=== PATIENT | female | born 1995 | race African-American/Black ===

== ENCOUNTER 2018-06-17 10:55 | Emergency (ER) | payer OTHER ==
[~2018-06-17] VITALS: Ht 149.9 cm; Wt 56.8 kg
[2018-06-17] MEDS ORDERED: ASPIRIN 81 MG CHEW TABLET PO ONE (11:15)
[2018-06-17 11:46] LABS: BASO % 0.4 % (0.0-1.0); EOS # 0.2 10^3/uL (0.0-0.50); EOS % 3.3 % (0.0-3.0); HEMATOCRIT 40.1 % (36.0-47.0); HEMOGLOBIN 12.9 g/dl (12.0-15.5); LYMPH % 41.6 % (24.0-44.0); MEAN CORPUSCULAR HEMOGLOBIN 27.4 pg (27.0-33.0); MEAN CORPUSCULAR HGB CONC 32.2 g/dl (32.0-36.5); MEAN CORPUSCULAR VOLUME 85.1 fl (80.0-96.0); MONO # 0.4 10^3/uL (0.0-0.8); MONO % 6.1 % (0.0-5.0); NEUTROPHILS # 3.5 10^3/uL (1.8-7.7); NEUTROPHILS % 48.3 % (36.0-66.0); PLATELET COUNT, AUTOMATED 275 10^3/uL (150-450); RED BLOOD COUNT 4.71 10^6/uL (4.00-5.40); WHITE BLOOD COUNT 7.2 10^3/uL (4.0-10.0)
--- NOTE | 2018-06-17 11:52 | REP ---
Chest two views HISTORY: Chest pain Comparison: None The lungs are clear. The heart is normal in size. The pulmonary vasculature is normal in appearance. The bony structure is intact. IMPRESSION: No acute disease. Electronically Signed by Volodymyr Wilson MD 06/17/2018 11:44 A
[2018-06-17 11:59] LABS: INR 0.94; PARTIAL THROMBOPLASTIN TIME 31.5 SECONDS (25.4-37.6); PROTHROMBIN TIME 12.7 SECONDS (12.1-14.4)
[2018-06-17 12:25] LABS: ALBUMIN 3.6 GM/DL (3.2-5.2); ALT/SGPT 14 U/L (12-78); BILIRUBIN,DIRECT < 0.1 MG/DL (0.0-0.2); BILIRUBIN,TOTAL 0.3 MG/DL (0.2-1.0); BLOOD UREA NITROGEN 13 MG/DL (7-18); CARBON DIOXIDE LEVEL 27 MEQ/L (21-32); CHLORIDE LEVEL 108 MEQ/L (98-107); CPK CREATINE PHOSPHOKINASE 249 U/L (26-192); CREATININE FOR GFR 0.84 MG/DL (0.55-1.30); FREE T4 1.13 NG/DL (0.76-1.46); GLOMERULAR FILTRATION RATE > 60.0 (>60); GLUCOSE, FASTING 87 MG/DL (70-100); LIPASE 84 U/L (73-393); MB/CK RELATIVE INDEX 0.52 (< OR =4); POTASSIUM SERUM 3.8 MEQ/L (3.5-5.1); SODIUM LEVEL 140 MEQ/L (136-145); THYROID STIMULATING HORMONE 0.676 uIU/ML (0.358-3.740); TOTAL PROTEIN 7.1 GM/DL (6.4-8.2); TROPONIN I < 0.02 NG/ML (< 0.10)
[2018-06-17] MEDS ORDERED: KETOROLAC 30 MG/ML VIAL (J1885) IV ONE (12:45)
[2018-06-17 14:46] VITALS: BP 103/56
--- NOTE | 2018-06-17 21:35 | ECGEPIP ---
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
== END 2018-06-17 14:53 | disposition home or self-care (01) ==
LOC: M ED 10:55
DX: R07.89 Other chest pain (principal); F41.9 Anxiety disorder, unspecified
CPT/HCPCS: 71046; 80048; 80076; 82550; 82553; 83690; 84439; 84443; 84484; 85025; 85379; 85610; 85730; 93005; 93041; 94760; 96374; 99285; J1885

== ENCOUNTER → 2018-07-24 | Outpatient (CLI) | payer OTHER ==
[~2018-07-24] MED LIST: METHACHOLINE KIT (J7674) INH ONE
--- NOTE | 2018-07-24 15:35 | PFTRPT ---
Height: 61.00 Inches Weight: 123.00 Lbs BSA: 1.54 Diagnosis: R05 DATE OF PROCEDURE: 07/24/2018 ORDERED BY: Dr. White INTERPRETATION: Study of excellent technical quality. Under protocol, methacholine was administered. At a dose of 2.5 mg or 13.875 CDUs, a 28% decline in the FEV1 was noted. PC of 0.71 is significant. Flow rates did return to baseline post bronchodilator administration. IMPRESSION: Positive methacholine challenge study. MTDD
== END ==
LOC: M CARPUL 12:19
PROVIDERS: ATTEND Internal Medicine Pulmonary Disease
DX: R05 Cough (principal)
CPT/HCPCS: 94070; J7674

== ENCOUNTER 2018-09-05 08:21 | Emergency (ER) | payer OTHER ==
[~2018-09-05] VITALS: Ht 152.4 cm; Wt 58.6 kg
[2018-09-05 08:22] VITALS: BP 123/75
== END 2018-09-05 09:27 | disposition home or self-care (01) ==
LOC: M ED 08:21
DX: L03.012 Cellulitis of left finger (principal); F17.200 Nicotine dependence, unspecified, uncomplicated; Z88.4 Allergy status to anesthetic agent

== ENCOUNTER 2018-09-11 07:59 | Emergency (ER) | payer OTHER ==
[~2018-09-11] VITALS: Ht 152.4 cm; Wt 58.0 kg
[2018-09-11] MEDS ORDERED: IBUP-1022 PO (08:08)
[2018-09-11] MEDS ORDERED: ACETAMINOPHEN 500 MG TAB PO ONE (09:00)
[2018-09-11 09:31] LABS: BASO % 0.7 % (0.0-1.0); EOS # 0.2 10^3/uL (0.0-0.50); EOS % 5.2 % (0.0-3.0); HEMATOCRIT 39.3 % (36.0-47.0); HEMOGLOBIN 12.6 g/dl (12.0-15.5); LYMPH # 2.3 10^3/uL (1.5-6.5); LYMPH % 54.1 % (24.0-44.0); MEAN CORPUSCULAR HEMOGLOBIN 28.6 pg (27.0-33.0); MEAN CORPUSCULAR HGB CONC 32.1 g/dl (32.0-36.5); MEAN CORPUSCULAR VOLUME 89.1 fl (80.0-96.0); MONO # 0.3 10^3/uL (0.0-0.8); MONO % 6.8 % (0.0-5.0); NEUTROPHILS # 1.4 10^3/uL (1.8-7.7); PLATELET COUNT, AUTOMATED 254 10^3/uL (150-450); RED BLOOD COUNT 4.41 10^6/uL (4.00-5.40); WHITE BLOOD COUNT 4.3 10^3/uL (4.0-10.0)
[2018-09-11 09:49] LABS: ERYTHROCYTE SEDIMENTATION RATE 13 mm/hr (0-20)
[2018-09-11 09:59] LABS: BLOOD UREA NITROGEN 7 MG/DL (7-18); CALCIUM LEVEL 8.5 MG/DL (8.5-10.1); CARBON DIOXIDE LEVEL 26 MEQ/L (21-32); CHLORIDE LEVEL 108 MEQ/L (98-107); CREATININE FOR GFR 0.73 MG/DL (0.55-1.30); GLOMERULAR FILTRATION RATE > 60.0 (>60); GLUCOSE, FASTING 74 MG/DL (70-100); SODIUM LEVEL 140 MEQ/L (136-145)
[2018-09-11] MEDS ORDERED: CYCL10TA PO (10:08)
[2018-09-11 10:10] VITALS: BP 113/62
== END 2018-09-11 10:21 | disposition home or self-care (01) ==
LOC: M ED 07:59
DX: R68.84 Jaw pain (principal); G89.18 Other acute postprocedural pain; Z72.0 Tobacco use; Z88.8 Allergy status to other drugs, medicaments and biological substances

== ENCOUNTER 2018-09-17 19:40 | Emergency (ER) | payer OTHER ==
[~2018-09-17] VITALS: Ht 152.4 cm; Wt 58.6 kg
[~2018-09-17 19:40] MED LIST changes: +CYCL10TA PO; +IBUP-1022 PO; -METHACHOLINE KIT (J7674) INH ONE
[2018-09-17] MEDS ORDERED: cefTRIAXone SOD 250 MG VIAL (J0696) IM ONE (20:15)
[2018-09-17] MEDS ORDERED: AZITHROMYCIN 250 MG TAB PO ONE (20:15)
[2018-09-17 20:51] VITALS: BP 108/64
== END 2018-09-17 20:53 | disposition home or self-care (01) ==
LOC: M ED 19:40
DX: A56.2 Chlamydial infection of genitourinary tract, unspecified (principal); J45.909 Unspecified asthma, uncomplicated; Z79.899 Other long term (current) drug therapy
CPT/HCPCS: 96372; 99283; J0696

== ENCOUNTER 2018-10-13 12:36 | Emergency (ER) | payer OTHER ==
[~2018-10-13] VITALS: Ht 152.4 cm; Wt 59.1 kg
[2018-10-13] MEDS ORDERED: PREN29TA4 PO (14:24)
[2018-10-13] MEDS ORDERED: FLAG500T PO (16:46)
[2018-10-13 16:59] VITALS: BP 115/59
[2018-10-13 17:02] LABS: CHLAMYDIA DNA AMPLIFICATION NEGATIVE (NEGATIVE); GC DNA AMPLIFICATION NEGATIVE (NEGATIVE)
--- NOTE | 2018-10-13 19:45 | REP ---
REASON: Left sided pain/supervision of normal . Multiple ultrasonographic images of the gravid uterus show a single living intrauterine gestation. The mean crown-rump length measurement of which is consistent with a 6 week 3 day gestational age. Doppler interrogation of the pole shows a heart rate of 115 beats per minute. There is no evidence of a chorionic or subchorionic abnormality. Evaluation of the maternal adnexal spaces showed no abnormalities. There is a 2.8 mm size right ovarian cyst, likely a corpus luteum cyst which is normal. IMPRESSION:Early OB ultrasound as described above. Electronically Signed by Kal Peters DO 10/14/2018 11:57 A
== END 2018-10-13 16:58 | disposition home or self-care (01) ==
LOC: M ED 12:36
DX: O23.591 Infection of other part of genital tract in pregnancy, first trimester (principal); O99.511 Diseases of the respiratory system complicating pregnancy, first trimester; Z79.899 Other long term (current) drug therapy; Z88.8 Allergy status to other drugs, medicaments and biological substances

== ENCOUNTER 2018-11-09 10:27 | Emergency (ER) | payer OTHER ==
[~2018-11-09] VITALS: Ht 152.4 cm; Wt 61.4 kg
[~2018-11-09 10:27] MED LIST changes: +FLAG500T PO; +PREN29TA4 PO
[2018-11-09 10:28] VITALS: BP 124/69
[2018-11-09 11:20] LABS: AMORPHOUS SEDIMENT SMALL (NEGATIVE); APPEARANCE, URINE HAZY (CLEAR); BACTERIA, URINE AUTO NEGATIVE (NEGATIVE); BASO % 0.4 % (0.0-1.0); BILIRUBIN, URINE AUTO NEGATIVE (NEGATIVE); BLOOD, URINE BLOOD NEGATIVE (NEGATIVE); COLOR, URINE YELLOW (YELLOW); EOS # 0.2 10^3/uL (0.0-0.5); EOS % 3.7 % (0.0-3.0); GLUCOSE, URINE (UA) AUTO NEGATIVE (NEGATIVE); HEMATOCRIT 37.9 % (36.0-47.0); HEMOGLOBIN 12.8 g/dl (12.0-15.5); KETONE, URINE AUTO NEGATIVE (NEGATIVE); LEUKOCYTE ESTERASE, URINE AUTO TRACE (NEGATIVE); LYMPH # 1.6 10^3/uL (1.5-5.0); LYMPH % 31.2 % (24.0-44.0); MEAN CORPUSCULAR HEMOGLOBIN 28.8 pg (27.0-33.0); MEAN CORPUSCULAR HGB CONC 33.8 g/dl (32.0-36.5); MEAN CORPUSCULAR VOLUME 85.4 fl (80.0-96.0); MONO # 0.4 10^3/uL (0.0-0.8); MONO % 7.9 % (0.0-5.0); MUCUS, URINE SMALL (NEGATIVE); NEUTROPHILS # 2.9 10^3/uL (1.5-8.5); NEUTROPHILS % 56.4 % (36.0-66.0); NITRITE, URINE AUTO NEGATIVE (NEGATIVE); PLATELET COUNT, AUTOMATED 211 10^3/uL (150-450); PROTEIN, URINE AUTO NEGATIVE (NEGATIVE); RBC, URINE AUTO 2 /HPF (0-3); RED BLOOD COUNT 4.44 10^6/uL (4.00-5.40); SPECIFIC GRAVITY URINE AUTO 1.025 (1.002-1.035); SQUAMOUS EPITHELIAL CELL UR AU 23 /HPF (0-6); UROBILINOGEN, URINE AUTO 0.2 mg/dL (0.0-2.0); WBC, URINE AUTO 1 /HPF (0-3); WHITE BLOOD COUNT 5.1 10^3/uL (4.0-10.0)
[2018-11-09] MEDS ORDERED: METOCLOPRAMIDE INJ 10MG/2ML VIAL (J2765) IV ONE (11:30)
[2018-11-09] MEDS ORDERED: NS 1,000 ML IV ONE (11:30)
[2018-11-09 11:36] LABS: PROTHROMBIN TIME 12.9 SECONDS (11.8-14.0)
[2018-11-09 11:37] LABS: PARTIAL THROMBOPLASTIN TIME 29.3 SECONDS (25.0-38.4)
[2018-11-09 12:01] LABS: ALBUMIN 3.3 GM/DL (3.2-5.2); ALT/SGPT 16 U/L (12-78); BILIRUBIN,TOTAL 0.3 MG/DL (0.2-1.0); BLOOD UREA NITROGEN 8 MG/DL (7-18); CALCIUM LEVEL 9.2 MG/DL (8.5-10.1); CARBON DIOXIDE LEVEL 26 MEQ/L (21-32); CHLORIDE LEVEL 105 MEQ/L (98-107); CK-MB VALUE MASS < 1.0 NG/ML (<3.6); CPK CREATINE PHOSPHOKINASE 131 U/L (26-192); CREATININE FOR GFR 0.63 MG/DL (0.55-1.30); GLOMERULAR FILTRATION RATE > 60.0 (>60); GLUCOSE, FASTING 75 MG/DL (70-100); HCG, SERUM QUANTITATIVE 64872 MIU/ML; MB/CK RELATIVE INDEX 0.76 (< OR =4); POTASSIUM SERUM 3.9 MEQ/L (3.5-5.1); SODIUM LEVEL 138 MEQ/L (136-145); TOTAL PROTEIN 7.1 GM/DL (6.4-8.2); TROPONIN I < 0.02 NG/ML (< 0.10)
--- NOTE | 2018-11-09 12:55 | REP ---
Clinical: Vaginal bleeding for Dating and viability. Technique: Transabdominal first trimester obstetrical ultrasound with color Doppler evaluation. Findings: Single live early intrauterine is appreciated. Gestational sac with yolk sac and pole identified. [place]-rump length of 3.5 cm corresponds to 10 weeks 2 days gestational age with estimated date of delivery 06/05/2019 . heart rate equals 169 beats per minute. No gross abnormalities are identified. Maternal ovaries are normal in appearance and vascularity without torsion and a right corpus luteum cyst identified. Impression: Single live early intrauterine at 10 weeks 2 days gestational age. Complete anatomical assessment should be performed and 19-20 weeks. Electronically Signed by Enrike Ortega MD 11/09/2018 12:46 P
--- NOTE | 2018-11-09 13:15 | REP ---
Clinical: chest pain . Comparison: 06/17/2018 . Findings: The mediastinum and cardiac silhouette are stable and within normal limits for portable technique. The lung perez are clear without acute consolidation, effusion, or pneumothorax. Skeletal structures are intact. Impression: No acute cardiopulmonary process appreciated. Electronically Signed by Enrike Ortega MD 11/09/2018 01:06 P
[2018-11-09 14:06] LABS: CHLAMYDIA DNA AMPLIFICATION NEGATIVE (NEGATIVE); GC DNA AMPLIFICATION NEGATIVE (NEGATIVE)
--- NOTE | 2018-11-09 20:35 | ECGEPIP ---
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
== END 2018-11-09 15:16 | disposition home or self-care (01) ==
LOC: M ED 10:27
DX: O26.891 Other specified pregnancy related conditions, first trimester (principal); O99.511 Diseases of the respiratory system complicating pregnancy, first trimester; Z3A.10 10 weeks gestation of pregnancy; Z79.899 Other long term (current) drug therapy; Z88.8 Allergy status to other drugs, medicaments and biological substances
CPT/HCPCS: 36415; 71045; 76801; 80053; 81001; 82550; 82553; 84484; 84702; 85025; 85610; 85730; 86900; 86901; 87210; 87661; 93005; 93976; 96361; 96374; 99284; J2765

== ENCOUNTER 2019-02-02 16:09 | Outpatient (CLI) | payer OTHER ==
[~2019-02-02] VITALS: Ht 152.4 cm; Wt 69.7 kg
[2019-02-02 16:34] VITALS: BP 120/65
[2019-02-02] MEDS ORDERED: ALBU83IN NEB (16:34)
[2019-02-02 17:41] VITALS: BP 128/64
[2019-02-02 20:02] LABS: CHLAMYDIA DNA AMPLIFICATION NEGATIVE (NEGATIVE); GC DNA AMPLIFICATION NEGATIVE (NEGATIVE)
--- NOTE | 2019-02-03 02:14 | IPNPDOC ---
Text Note Date of Service The patient was seen on 02/02/19. NOTE Triage note Sim is a 23yo with SIUP at 22+wk presenting for lower abdominal pain/cramping that has been going on for 2 weeks. She also notes a "thick white vaginal discharge" that has been going on for 2 weeks. No vaginal itching or vaginal discomfort. No burning with urination or increased frequency/urge. No n/v/f/c. She has not had ctx, lof, vb. She feels movement. 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 No e/o infection with negative G/C DNA and negative MERLIN/WP. Benign exam with normal vitals and reassuring status. Plan: -urine culture pending -reassurance provided that these are likely normal physiologic changes of -tylenol, warm baths, comfortable positioning all encouraged -patient instructed to keep routine scheduled OB visit mid February -safe for discharge -return precautions discussed MD CORAZON Martinez Fishbone, I+O VSBella, I+O Vital Signs Date Time Temp Pulse Resp B/P (MAP) Pulse Ox O2 Delivery O2 Flow Rate FiO2 02/02/19 17:41 97.6 88 16 128/64 (85) Any Dwyer MD Feb 02, 2019 18:40
== END 2019-02-02 18:08 | disposition home or self-care (01) ==
LOC: M LDO 16:09
PROVIDERS: ATTEND Obstetrics & Gynecology
DX: O26.892 Other specified pregnancy related conditions, second trimester (principal); R10.30 Lower abdominal pain, unspecified; N89.8 Other specified noninflammatory disorders of vagina; Z3A.22 22 weeks gestation of pregnancy
CPT/HCPCS: 59025; 87086; 87491; 87591; G0378; G0463

== ENCOUNTER 2019-02-11 06:00 | Outpatient (CLI) | payer OTHER ==
[~2019-02-11] VITALS: Ht 152.4 cm; Wt 68.8 kg
[~2019-02-11 06:00] MED LIST changes: +ALBU83IN NEB
[2019-02-11 07:02] VITALS: BP 102/57
[2019-02-11] MEDS ORDERED: ALBUTERAL INHALER (07:21)
[2019-02-11] MEDS ORDERED: TUMS750C5 PO (07:23)
[2019-02-11 08:19] VITALS: BP 97/56
[2019-02-11 09:44] VITALS: BP 115/61
--- NOTE | 2019-02-11 11:19 | IPNPDOC ---
Text Note Date of Service The patient was seen on 02/11/19. NOTE Triage note Sim is a 23yo with SIUP at 23+wk presenting for low back pain and some lower abdominal pain that has been going on since Saturday, when she did an intense work out. I saw her in triage previously on 02/02 for low abdominal discomfort and did a PTL workup (SSE cervix was visually closed/thick/high, MERLIN/WP negative, G/C DNA neg, urine culture no growth). She has not had ctx, lof, vb. She feels movement. No n/v/f/c. Vitals wnl, afebrile General: WDWN, sitting in bed comfortably Abdomen: soft, gravid, NTTP and no rebound/guarding Back: NO CVAT, pt endorses some tenderness with palpation in a central portion over her lower back (to the sides of her spine), no skin changes Extremities: no edema of BLE +Doptones [place]: no ctx Assessment: Sim is a 23yo with SIUP at 23+wk presenting for low back pain and some lower abdominal pain that has been going on since Saturday, when she did an intense work out. She had PTL workup done on 02/02 that showed no e/o infection with negative G/C DNA and negative MERLIN/WP and no growth of urine culture. Today she has benign exam with normal vitals and reassuring status. There are no ctx on toco. No concern for PTL. Plan: -reassurance provided, her discomfort is likely related to overstraining her back with Saturday's workup -tylenol, warm baths, comfortable positioning all encouraged -note given for no further PT prior to vacation -patient instructed to keep routine scheduled OB visit mid February -safe for discharge -return precautions discussed Dr. Any Dwyer MD VS,Bella, I+O VS, Bella, I+O Vital Signs Date Time Temp Pulse Resp B/P (MAP) Pulse Ox O2 Delivery O2 Flow Rate FiO2 02/11/19 09:44 97.8 89 16 115/61 (79) Any Dwyer MD Feb 11, 2019 11:14
== END 2019-02-11 10:00 | disposition home or self-care (01) ==
LOC: M LDO 06:00
PROVIDERS: ATTEND Obstetrics & Gynecology
DX: O99.89 Other specified diseases and conditions complicating pregnancy, childbirth and the puerperium (principal); M54.5 Low back pain; R10.30 Lower abdominal pain, unspecified; Z3A.23 23 weeks gestation of pregnancy

== ENCOUNTER 2019-04-22 08:32 | Outpatient (CLI) | payer OTHER ==
[~2019-04-22] VITALS: Ht 152.4 cm; Wt 72.0 kg
[2019-04-22] VITALS (11 sets, daily range): BP systolic 91–134; BP diastolic 43–70
[~2019-04-22 08:32] MED LIST changes: +ALBUTERAL INHALER; +TUMS750C5 PO
[2019-04-22] MEDS ORDERED: LACTATED RINGER'S 1000 ML IV STA (10:45)
[2019-04-22] MEDS ORDERED: LR 1,000 ML IV SCH (10:45)
[2019-04-22 11:47] LABS: APPEARANCE, URINE CLEAR (CLEAR); BACTERIA, URINE AUTO NEGATIVE (NEGATIVE); BILIRUBIN, URINE AUTO NEGATIVE (NEGATIVE); BLOOD, URINE BLOOD NEGATIVE (NEGATIVE); COLOR, URINE YELLOW (YELLOW); GLUCOSE, URINE (UA) AUTO NEGATIVE (NEGATIVE); KETONE, URINE AUTO 1+ mg/dL (NEGATIVE); LEUKOCYTE ESTERASE, URINE AUTO NEGATIVE (NEGATIVE); MUCUS, URINE SMALL (NEGATIVE); NITRITE, URINE AUTO NEGATIVE (NEGATIVE); PROTEIN, URINE AUTO NEGATIVE (NEGATIVE); RBC, URINE AUTO 0 /HPF (0-3); SPECIFIC GRAVITY URINE AUTO 1.021 (1.002-1.035); SQUAMOUS EPITHELIAL CELL UR AU 2 /HPF (0-6); UROBILINOGEN, URINE AUTO 0.2 mg/dL (0.0-2.0); WBC, URINE AUTO 1 /HPF (0-3)
[2019-04-22] MEDS ORDERED: TERBUTALINE SULFATE 1 MG/ML VIAL (J3105) SC ONE (14:45)
--- NOTE | 2019-04-22 17:12 | REP ---
Obstetric sonography: History: growth study. Findings: Scanning through the gravid uterus demonstrates a viable single intrauterine gestation in a cephalic lie. motion is observed and heart rate is recorded at 152 beats per minute. An anterior placenta is seen grade 1 without evidence of placenta previa. Amniotic fluid is subjectively normal. No extrauterine abnormalities observed. Closed cervical length viewed transabdominally measures 3.4 cm. No abnormality is observed. The following anatomic structures are less than optimally seen today due to position: Choroid plexus, four-chamber heart, spine, upper and lower extremities. The following anatomic structures are identified and felt to be unremarkable: cranium, cavum, cerebellum and posterior fossa, face and profile, lungs, left and right ventricular outflow tract views, diaphragm, left-sided stomach, abdominal wall cord insertion, three-vessel cord, kidneys and bladder. Biometry chart: BPD 8.9 cm = 35 weeks 6 days HC 31.1 cm = 34 weeks 5 days AC 30.7 cm = 34 weeks 4 days FL 6.1 cm = 31 weeks 4 days HL 5.5 cm = 31 weeks 5 days HC/AC ratio normal 1.01. Cephalic index normal 0.82. Estimated weight 2309 grams, 5 pounds 1 ounce, 57th percentile for 33 weeks 2 days. ARLENE 12.7 cm. S/D ratio 3.11 (2.00-3.00). Impression: Viable single intrauterine gestation at 33 weeks 5 days by today's composite sonographic criteria. Expected gestational age estimate based on prior sonography is also 33 weeks 5 days. OSIEL by prior sonography June 05, 2019. Appropriate interval growth. Electronically Signed by Melvin Ospina MD 04/23/2019 10:27 A
[2019-04-22 18:40] LABS: INFLUENZA A AMPLIFICATION NEGATIVE (NEGATIVE); INFLUENZA B AMPLIFICATION NEGATIVE (NEGATIVE)
[2019-04-22 19:24] LABS: HEMATOCRIT 37.4 % (36.0-47.0); HEMOGLOBIN 12.1 g/dl (12.0-15.5); MEAN CORPUSCULAR HEMOGLOBIN 27.9 pg (27.0-33.0); MEAN CORPUSCULAR HGB CONC 32.4 g/dl (32.0-36.5); MEAN CORPUSCULAR VOLUME 86.2 fl (80.0-96.0); PLATELET COUNT, AUTOMATED 175 10^3/uL (150-450); RED BLOOD COUNT 4.34 10^6/uL (4.00-5.40); WHITE BLOOD COUNT 5.7 10^3/uL (4.0-10.0)
[2019-04-22] MEDS ORDERED: ACETAMINOPHEN 500 MG TAB PO PRN (21:30)
--- NOTE | 2019-04-23 00:54 | IPNPDOC ---
Text Note Date of Service The patient was seen on 04/22/19. NOTE Triage Note Sim is a 23yo with SIUP at 33w2d by lmp c/w early u/s who presented to L&D this morning for CC of low back pain and contractions. She states the contractions started around 0400 this morning and have been persistent. They are uncomfortable to her. She has felt good movement, no vaginal bleeding, no loss of fluid. No f/c/n/v prior to arrival. No dysuria. No abnormal vaginal discharge or irritation. [place] state, so no intercourse since March when he last came home to visit. 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 FFN and swab for MERLIN/WP obtained. SCE: cl/th/high Overall Cat I FHRT with periods of tachycardia that resolve to normal baseline, over the course of the day she had two obvious variable decels, but otherwise no decels for hours at a time, +accels [place]: regular ctx that resolved eventually Labs: FFN negative MERLIN/WP negative for clue cells, trichomonas, budding yeast/hyphae urinalysis negative (1 WBC, negative bacteria) WBC 5.7, H/H 12.1/37.4, plt 175 influenza A/B negative Radiology: Obstetric sonography 04/22/2019: History: growth study. Findings: Scanning through the gravid uterus demonstrates a viable single intrauterine gestation in a cephalic lie. motion is observed and heart rate is recorded at 152 beats per minute. An anterior placenta is seen grade 1 without evidence of placenta previa. Amniotic fluid is subjectively normal. No extrauterine abnormalities observed. Closed cervical length viewed transabdominally measures 3.4 cm. No abnormality is observed. The following anatomic structures are less than optimally seen today due to position: Choroid plexus, four-chamber heart, spine, upper and lower extremities. The following anatomic structures are identified and felt to be unremarkable: cranium, cavum, cerebellum and posterior fossa, face and profile, lungs, left and right ventricular outflow tract views, diaphragm, left-sided stomach, abdominal wall cord insertion, three-vessel cord, kidneys and bladder. Biometry chart: BPD 8.9 cm = 35 weeks 6 days HC 31.1 cm = 34 weeks 5 days AC 30.7 cm = 34 weeks 4 days FL 6.1 cm = 31 weeks 4 days HL 5.5 cm = 31 weeks 5 days HC/AC ratio normal 1.01. Cephalic index normal 0.82. Estimated weight 2309 grams, 5 pounds 1 ounce, 57th percentile for 33 weeks 2 days. ARLENE 12.7 cm. S/D ratio 3.11 (2.00-3.00). Impression: Viable single intrauterine gestation at 33 weeks 5 days by today's composite sonographic criteria. Expected gestational age estimate based on prior sonography is also 33 weeks 5 days. OSIEL by prior sonography June 05, 2019. Appropriate interval growth. Assessment: Sim is a 23yo with SIUP at 33w2d by lmp c/w early u/s who presented with continuous ctx, but had no evidence of labor. She received IV hydration and a dose of terbutaline, and eventually contractions petered out. SCE cl/th/high. Cervical length 3.4cm. MERLIN/WP and urinalysis negative. Reassuring assessment overall, ARLENE 12.7cm. Vitals wnl except for 1 isolated mildly elevated temp that resolved when blankets taken off. WBC count wnl. Influenza testing negative. No e/o infection. Plan: -Discharge to home -Keep next routine OB appt -Discussed rest and hydration -note given for patient's work to be able to rest tomorrow morning -discussed return precautions at length Dr. Any Dwyer MD VS,Bella, I+O VS, Bella, I+O Laboratory Tests 04/22/19 19:12 Vital Signs Date Time Temp Pulse Resp B/P (MAP) Pulse Ox O2 Delivery O2 Flow Rate FiO2 04/22/19 18:56 98.5 133 18 134/58 (83) Any Dwyer MD Apr 22, 2019 22:01
== END 2019-04-22 23:00 | disposition home or self-care (01) ==
LOC: M LDO 08:32
PROVIDERS: ATTEND Obstetrics & Gynecology
DX: O26.893 Other specified pregnancy related conditions, third trimester (principal); Z3A.33 33 weeks gestation of pregnancy; O47.1 False labor at or after 37 completed weeks of gestation; M54.5 Low back pain; R10.2 Pelvic and perineal pain
CPT/HCPCS: 36415; 59025; 76811; 76820; 81001; 82731; 85027; 86780; 86850; 86900; 86901; 87086; 87502; G0378; G0463; J3105

== ENCOUNTER 2019-05-20 13:26 | Outpatient (CLI) | payer OTHER ==
[~2019-05-20] VITALS: Ht 152.4 cm; Wt 76.9 kg
[2019-05-20 13:47] VITALS: BP 123/69
[2019-05-20] MEDS ORDERED: APAP325T4 PO (13:56)
[2019-05-20 15:02] VITALS: BP 131/70
[2019-05-20] MEDS ORDERED: FIORICET TAB PO ONE (15:15)
== END 2019-05-20 15:38 | disposition home or self-care (01) ==
LOC: M LDO 13:26
PROVIDERS: ATTEND Advanced Practice Midwife
DX: O47.1 False labor at or after 37 completed weeks of gestation (principal); Z3A.37 37 weeks gestation of pregnancy
CPT/HCPCS: 59025; G0378; G0463

== ENCOUNTER 2019-06-05 15:27 | Outpatient (CLI) | payer OTHER ==
[~2019-06-05] VITALS: Ht 152.4 cm; Wt 76.7 kg
[~2019-06-05 15:27] MED LIST changes: +APAP325T4 PO
[2019-06-05 15:46] VITALS: BP 119/68
--- NOTE | 2019-06-05 16:24 | IPNPDOC ---
Text Note Date of Service The patient was seen on 06/05/19. NOTE Patient is 23yo at 39wks. C/o chest pain and LBP. Rare contractions. No loss of fluid or bleeding. Good movement. LBP has been constant and hasn't improved with Tylenol or warm bath. CP is on left side and left arm. Different from her GERD. PE: VS WNL GEN NAD, Comfortable SVE: FT/20/-3 FHT: Category 1, 120s, reactive, no decels. contractions irregular. A/P: Fetus reassuring. Patient not in labor and no rupture of membranes. Patient given labor precautions, rupture of membranes precautions and kick counts. She has a follow up appt on 06/08/2019. She will be sent to the ER. I spoke with the ER physician to give report about chest pain. Karla Linder MD Jun 05, 2019 16:24
[2019-06-05 16:46] VITALS: BP 108/54
== END 2019-06-05 17:20 | disposition other institution (70) ==
LOC: M LDO 15:27
PROVIDERS: ATTEND Obstetrics & Gynecology
DX: O26.893 Other specified pregnancy related conditions, third trimester (principal); M54.9 Dorsalgia, unspecified; R07.9 Chest pain, unspecified; O47.1 False labor at or after 37 completed weeks of gestation; Z3A.39 39 weeks gestation of pregnancy
CPT/HCPCS: 59025; G0378; G0463

== ENCOUNTER 2019-06-05 17:36 | Emergency (ER) | payer OTHER ==
[~2019-06-05] VITALS: Ht 152.4 cm; Wt 77.8 kg
[~2019-06-05 17:36] MED LIST changes: +CYCL-707 PO; -CYCL10TA PO
[2019-06-05 17:45] VITALS: BP 116/62
[2019-06-05 18:13] LABS: BASO % 0.4 % (0.0-1.0); EOS # 0.1 10^3/uL (0.0-0.5); EOS % 1.1 % (0.0-3.0); HEMATOCRIT 38.3 % (36.0-47.0); HEMOGLOBIN 12.5 g/dl (12.0-15.5); LYMPH # 1.6 10^3/uL (1.5-5.0); MEAN CORPUSCULAR HGB CONC 32.6 g/dl (32.0-36.5); MEAN CORPUSCULAR VOLUME 85.7 fl (80.0-96.0); MONO # 0.3 10^3/uL (0.0-0.8); MONO % 7.5 % (0.0-5.0); NEUTROPHILS # 2.5 10^3/uL (1.5-8.5); NEUTROPHILS % 54.8 % (36.0-66.0); PLATELET COUNT, AUTOMATED 201 10^3/uL (150-450); RED BLOOD COUNT 4.47 10^6/uL (4.00-5.40); WHITE BLOOD COUNT 4.6 10^3/uL (4.0-10.0)
[2019-06-05 18:26] LABS: INR 0.95; PROTHROMBIN TIME 12.4 SECONDS (11.8-14.0)
[2019-06-05 18:27] LABS: PARTIAL THROMBOPLASTIN TIME 28.6 SECONDS (25.0-38.4)
[2019-06-05 18:29] LABS: D-DIMER QUANT 658.36 ng/ml (<500)
--- NOTE | 2019-06-05 18:45 | REPVR ---
PROCEDURE INFORMATION: Exam: US Duplex Lower Extremity Veins Exam date and time: 06/05/2019 6:39 PM Age: 23 years old Clinical indication: Pain; Other: Chest; Additional info: Preg chest pain eval for dvt, 39 weeks TECHNIQUE: Imaging protocol: Real-time duplex ultrasound of the Lower Extremities with 2-D rosario scale, color Doppler flow and spectral waveform analysis with image documentation. Complete exam focused on the bilateral lower extremity veins. COMPARISON: No relevant prior studies available. FINDINGS: Right deep veins: Unremarkable. The common femoral, femoral, proximal profunda femoral and popliteal veins are patent without thrombus. Normal Doppler waveforms. Normal compressibility and/or augmentation response. Right superficial veins: Saphenofemoral junction is patent without thrombus. Left deep veins: Unremarkable. The common femoral, femoral, proximal profunda femoral and popliteal veins are patent without thrombus. Normal Doppler waveforms. Normal compressibility and/or augmentation response. Left superficial veins: Saphenofemoral junction is patent without thrombus. Soft tissues: Unremarkable. IMPRESSION: No deep venous thrombus demonstrated in either lower extremity. Electronically signed by: Julio Patel On 06/05/2019 18:44:58 PM
[2019-06-05 18:47] LABS: ALBUMIN 2.7 GM/DL (3.2-5.2); ALT/SGPT 16 U/L (12-78); BILIRUBIN,DIRECT < 0.1 MG/DL (0.0-0.2); BILIRUBIN,TOTAL 0.3 MG/DL (0.2-1.0); BLOOD UREA NITROGEN 10 MG/DL (7-18); CARBON DIOXIDE LEVEL 23 MEQ/L (21-32); CHLORIDE LEVEL 106 MEQ/L (98-107); CK-MB VALUE MASS < 1.0 NG/ML (<3.6); CPK CREATINE PHOSPHOKINASE 71 U/L (26-192); FREE T4 1.19 NG/DL (0.76-1.46); GLOMERULAR FILTRATION RATE > 60.0 (>60); GLUCOSE, FASTING 69 MG/DL (70-100); LIPASE 59 U/L (73-393); MB/CK RELATIVE INDEX 1.41 (< OR =4); POTASSIUM SERUM 3.9 MEQ/L (3.5-5.1); SODIUM LEVEL 135 MEQ/L (136-145); TOTAL PROTEIN 6.8 GM/DL (6.4-8.2); TROPONIN I < 0.02 NG/ML (< 0.10)
--- NOTE | 2019-06-06 07:44 | ECGEPIP ---
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
== END 2019-06-05 19:53 | disposition left against medical advice (07) ==
LOC: M ED 17:36
DX: O26.893 Other specified pregnancy related conditions, third trimester (principal); Z53.21 Procedure and treatment not carried out due to patient leaving prior to being seen by health care provider; O99.613 Diseases of the digestive system complicating pregnancy, third trimester; O99.513 Diseases of the respiratory system complicating pregnancy, third trimester; Z3A.39 39 weeks gestation of pregnancy; Z79.899 Other long term (current) drug therapy; Z88.8 Allergy status to other drugs, medicaments and biological substances

== ENCOUNTER 2019-06-11 04:42 | Inpatient (IN) | payer OTHER ==
[~2019-06-11] VITALS: Ht 152.4 cm; Wt 76.0 kg
[2019-06-11] VITALS (51 sets, daily range): BP systolic 108–174; BP diastolic 54–97
[2019-06-11] MEDS ORDERED: PENICILLIN G POTASSIUM IV 5 MU in D5W MINI-BAG PLUS 100 ML IV STA ×2 (05:24→06:12)
[2019-06-11] MEDS ORDERED: LACTATED RINGER'S 1000 ML IV ONE (05:30)
[2019-06-11 06:18] LABS: HEMOGLOBIN 12.2 g/dl (12.0-15.5); MEAN CORPUSCULAR VOLUME 84.9 fl (80.0-96.0); PLATELET COUNT, AUTOMATED 185 10^3/uL (150-450); RED BLOOD COUNT 4.36 10^6/uL (4.00-5.40); WHITE BLOOD COUNT 6.4 10^3/uL (4.0-10.0)
[2019-06-11] MEDS: LR 1,000 ML IV SCH ×4 (06:18→16:09)
--- NOTE | 2019-06-11 06:59 | HPE ---
DATE OF ADMISSION: 06/11/2019 23-year-old, 2, para 1, last menstrual period (LMP) 09/01/2018, expected date of confinement (EDC) 06/08/2019, at 40 weeks of gestation with active labor and bloody show. Risk factor is she has asthma. Past History: 03/2016 - At 37 and 3 weeks, spontaneous vaginal delivery, male. Labs: O+. HIV negative. Hepatitis negative. RPR negative. Rubella immune. Varicella immune. Pap normal. Urine negative. Gonorrhea and chlamydia negative. 1-hour glucose was 80. GBS positive. Blood pressure is 108/54, respirations 18, pulse is 100 and temperature 97.4. Urine is 1.005, pH 6 and negative. On examination, the patient is distressed. Symphysis fundus height is 40, vertex presenting, 70% effaced, posterior, 1-2 cm, very soft, head well applied to the cervix, and there is moderate show on the glove. The patient has a category one strip. The rest of the examination is unremarkable. Normocephalic, atraumatic. Neck full range of motion. Pupils equal and reactive to light. Distal pulses symmetric. No evidence of deep vein thrombosis (DVT), pulmonary embolus (PE) or superficial phlebitis. Chest is clear bilaterally to bases. No wheezes or rhonchi. No CVA tenderness. Abdomen: Soft. Four quadrant bowel sounds as mentioned. She has no rashes, lesions or pruritus. No arthralgia or myalgia. No complaint of joint pain. No complaint of cough, wheezes, shortness of breath or dyspnea on exertion. No nausea, vomiting, diarrhea or constipation. She has no bleeding. Neuro complete. She has no diabetic issues. No heat or cold sensitivity issues. She has no PHYSICAL EDUCATION SPECIALIST history. She has a normal Pap smear. No STDs. Family and past medical is unremarkable. Family history is noncontributory. She does not smoke, drink or abuse drugs. She is . No domestic violence. Allergies are to XYLOCAINE, for which she gets a rash. We discussed consent for vaginal delivery which is delivery through the vagina, possible assistance may be required with use of forceps or vacuum devices if needed for maternal or indications. Forceps or vacuum device that can assist with vaginal delivery when normal pushing efforts cannot be achieved on their own or when delivery is needed in an emergency for baby's well-being. Medications may be required to induce or augment labor in order achieve vaginal delivery. Episiotomy may be required to help the baby deliver vaginally. May also require repair of any lacerations or tears to the vagina or vulva that are caused by delivery. In some cases, emergencies can arise that we have to do an emergency section. This will be discussed by the provider and is done for clinical indications only. Risk of vaginal delivery include, not limited to bleeding, infection, injury to the vagina, pelvic structures, injury to baby, damage to the uterus, reaction to anesthesia, uterine rupture, risk of hysterectomy for life-threatening bleeding situations or . Medications used to induce or augment labor may increase the risk of infection, uterine tachysystole, uterine rupture, heart rate abnormalities, need for emergency section or possible hysterectomy and hemorrhage. Additional risks of the use of forceps or vacuum include increased risk of perineal or vaginal lacerations, risk of urinary or bowel incontinence. Risk of the use of forceps or vacuums may include scratches or hematomas of the head or intracranial bleed. The patient verbalized understanding of these risks and elected to proceed. 40-minute discussion. All questions were answered. Our plan of management is hydrate her, epidural as needed and GBS prophylaxis to start presently as the patient is in active labor.
[2019-06-11] MEDS ORDERED: OXYTOCIN 30 UNITS IN 0.9% NaCl 500ML IV BAG (J2590) As Ordered ONE (07:24)
[2019-06-11] MEDS ORDERED: OXYTOCIN DRIP 30 UNITS in IV 1 EA IV SCH ×2 (08:45→18:05)
[2019-06-11] MEDS ORDERED: **PENDING PCN ENTRY XX SCH (09:00)
[2019-06-11] MEDS ORDERED: PENICILLIN G POTASSIUM IV 2.5 MU in IV 1 EA IV SCH (09:30)
[2019-06-11] MEDS: PENICILLIN G POTASSIUM IV 2.5 MU in IV 1 EA IV SCH ×2 (10:36→14:30)
[2019-06-11] MEDS ORDERED: FENTANYL 2MCG/ML ROPIVACAINE 0.2% IN 0.9% NACL 100ML IVBAG As Ordered ONE (14:17)
[2019-06-11] MEDS ORDERED: REFRIGERATOR IV KEYS XX PRN ×2 (16:15)
[2019-06-11] MEDS ORDERED: NALOXONE INJ 0.4 MG/1 ML VIAL (J2310) IV PRN ×2 (16:15)
[2019-06-11] MEDS ORDERED: EPIDURAL/PCA KEYS XX PRN ×2 (16:15)
[2019-06-11] MEDS ORDERED: diphenhydrAMINE 50MG/ML VIAL (J1200) IV PRN ×2 (16:15)
[2019-06-11] MEDS ORDERED: LACTATED RINGER'S 1000 ML IV PRN ×2 (16:15)
[2019-06-11] MEDS ORDERED: FENTANYL/ROPIVACAINE/NACL BAG 100 ML EPIDURAL SCH ×2 (16:15)
[2019-06-11] MEDS ORDERED: EPIDURAL COMMENT XX SCH ×2 (16:15)
[2019-06-11] MEDS ORDERED: ONDANSETRON 4MG/2ML VIAL (J2405) IV PRN ×2 (16:15)
[2019-06-11] MEDS ORDERED: ePHEDrine SULFATE 25 MG/5 ML(5MG/ML) SYRINGE IV PRN ×2 (16:15)
--- NOTE | 2019-06-11 18:05 | DNPDOC ---
[facility] Delivery Note Delivery Note DATE OF DELIVERY: PREDELIVERY DIAGNOSIS: 40+3/7 weeks' gestation and labor. POST DELIVERY DIAGNOSIS: Delivered. PROCEDURE: Spontaneous vaginal delivery STOCKING INSPECTOR: Dr. Rigo Gama DO ANESTHESIA: epidural ESTIMATED BLOOD LOSS: 250 mL. FINDINGS: 7 pound 4 ounce, male infant, Score 8/9, compound left hand and arm. DELIVERY SUMMARY: With good maternal effort, baby delivered OA, restituted ROT. Anterior shoulder delivered with let arm and hand. posterior shoulder delivered. body followed with ease. baby with vigorous cries. baby placed on maternal abdomen. Cord allowed to stop pulsating. Cord clamped x 2 and cut by patient's support person. Pitocin bolus started. cord blood collected per routine. placenta delivery spontaneously. Fundus massaged firm. Inspection revealed no laceration. mother and baby bonding when I left the room. DO MARYELLEN Gama LUAT N. DO Jun 11, 2019 18:05
[2019-06-11] MEDS ORDERED: MEASLES,MUMPS,RUBELLA VACCINE INJ (MMR-II) (90707) SC SCH (18:15)
[2019-06-11] MEDS ORDERED: DIBUCAINE 1% OINTMENT 30GM TOP PRN (18:15)
[2019-06-11] MEDS ORDERED: RHOGAM 300 MCG (1500 IU) INJ (J2790) IM SCH (18:15)
[2019-06-11] MEDS ORDERED: DOCUSATE SODIUM 100 MG CAP PO PRN (18:15)
[2019-06-11] MEDS: ACETAMINOPHEN TAB 650MG DOSE (2X325MG) PO PRN (20:00)
[2019-06-11] MEDS: IBUPROFEN 800 MG TAB PO PRN (20:00)
[2019-06-11] MEDS ORDERED: diphenhydrAMINE 25MG CAP PO PRN (21:45)
[2019-06-11] MEDS ORDERED: LR 1,000 ML IV ONE (22:00)
[2019-06-12] MEDS: ACETAMINOPHEN TAB 650MG DOSE (2X325MG) PO PRN ×3 (03:58→19:14)
[2019-06-12 06:00] VITALS: BP 130/75
[2019-06-12] MEDS: IBUPROFEN 800 MG TAB PO PRN ×2 (06:25→14:58)
[2019-06-12] MEDS: PRENATAL VITAMINS CHEWABLE TABLET PO SCH (07:34)
--- NOTE | 2019-06-12 07:41 | IPNPDOC ---
Progress Note Date of Service: Jun 12, 2019 Day#: 1 Progress Note SUBJECT: patient is a 23 yo s/p ppd #1. patient without concerns today. she had swelling above her eyes and tingling of her lips overnight. resolved with benadryl. She has been ambulating, voiding spontaneously without issue and tolerating regular diet. Breast feeding without issue. Lochia is light. plans on paragard for contraceptive. OBJECTIVE: VITAL SIGNS: Within normal limits, afebrile. Alert and oriented times three. Abdomen: Fundus firm at U-2. Soft, NTTP. LE: no edema/erythema/tenderness a/p ppd #1, doing well. delivered around 1800 yesterday, maybe discharge home today pending baby discharge. discussed contraceptive options and patient plans on paragard. She is not interested in anything in the interim. spouse is in [place]. encourage bf. routine ppc. le, DO VS, I&O, 24H, Fishbone Vital Signs/I&O Vital Signs Date Time Temp Pulse Resp B/P (MAP) Pulse Ox O2 Delivery O2 Flow Rate FiO2 06/12/19 06:00 96.9 80 20 130/75 (93) 100 Room Air I&O- Last 24 Hours up to 6 AM 06/12/19 05:59 Intake Total 2356.8 ml Output Total 1850 ml Balance 506.8 ml SALINAS BOJORQUEZ DO Jun 12, 2019 07:25
[2019-06-12 17:26] VITALS: BP 137/89
[2019-06-12 18:06] VITALS: BP 145/91
[2019-06-13] MEDS: IBUPROFEN 800 MG TAB PO PRN (05:11)
[2019-06-13 06:00] VITALS: BP 119/59
[2019-06-13] MEDS ORDERED: IBUP80TA PO (07:38)
[2019-06-13] MEDS ORDERED: DOCU100C16 PO (07:38)
--- NOTE | 2019-06-13 08:00 | DSES ---
DATE OF ADMISSION: 06/11/2019 DATE OF DISCHARGE: 06/13/2019 This lady is a 23-year-old 2 now para 2 admitted in active labor at 40 and 3 weeks of gestation, had a spontaneous vaginal delivery of a live male infant 7 pounds 4 ounces. scores of eight and nine at 1 and 5 minutes respectively. Hemoglobin 12.2, hematocrit 37.0, platelets are 185. Blood pressure on discharge was 119/59, respirations 16, pulse 60, temperature is 98.6. We discussed phlebitis, cystitis, mastitis, endometritis, cellulitis, diet, exercise, pain management, perineal, breast and wound care. The rest examination was unremarkable. Normocephalic, atraumatic. Neck full range of motion. Pupils equal and reactive to light. Distal pulses are symmetric. No evidence of deep vein thrombosis (DVT), pulmonary embolism (PE), or superficial phlebitis. Chest is clear bilaterally bases. No wheezes or rhonchi. No CVA tenderness. Abdomen soft. Four quadrant bowel sounds are noted. Uterus is 2 below. Lochia is moderate. Perineum is intact. No rashes, lesions or pruritus. No arthralgia, myalgia. No complaint of joint pain. No complaint of cough, wheeze, shortness of breath or dyspnea on exertion. No nausea, vomiting, diarrhea or constipation. No urgency. No frequency. In summary we have a term gestation delivered a live male infant. Plans are to discharge today. 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 Six week checkup, We had a 20-minute discussion, all questions were answered.
[2019-06-13] MEDS: PRENATAL VITAMINS CHEWABLE TABLET PO SCH (08:28)
== END 2019-06-13 14:10 | disposition home or self-care (01) | DRG 807 ==
LOC: M LDO 04:42 → M LDI 05:18 → M PED 20:25
PROVIDERS: ADMIT Obstetrics & Gynecology; ATTEND Obstetrics & Gynecology
PROC: 10E0XZZ Delivery of Products of Conception, External Approach (ICD-10-PCS; principal; 2019-06-11)
DX: O48.0 Post-term pregnancy (principal); Z37.0 Single live birth; Z3A.40 40 weeks gestation of pregnancy; Z88.8 Allergy status to other drugs, medicaments and biological substances

== ENCOUNTER 2019-10-13 15:05 | Emergency (ER) | payer OTHER ==
[~2019-10-13 15:05] MED LIST changes: +DOCU100C16 PO; +IBUP80TA PO
[2019-10-13] MEDS ORDERED: ONDANSETRON 4MG/2ML VIAL ONE (15:06)
[2019-10-13] MEDS ORDERED: ONDANSETRON 4MG/2ML VIAL As Ordered ONE (15:07)
[2019-10-13] MEDS ORDERED: ISOVUE-370 76% 100ML VIAL As Ordered ONE (17:33)
[2019-11-28 07:49] LABS: BASO % 0.5 % (0.0-1.0); EOS # 0.2 10^3/uL (0.0-0.5); EOS % 3.3 % (0.0-3.0); HEMATOCRIT 40.5 % (36.0-47.0); LYMPH # 2.8 10^3/uL (1.5-5.0); LYMPH % 47.8 % (24.0-44.0); MEAN CORPUSCULAR HEMOGLOBIN 27.8 pg (27.0-33.0); MEAN CORPUSCULAR HGB CONC 32.1 g/dl (32.0-36.5); MEAN CORPUSCULAR VOLUME 86.5 fl (80.0-96.0); MONO # 0.4 10^3/uL (0.0-0.8); MONO % 7.4 % (0.0-5.0); NEUTROPHILS # 2.4 10^3/uL (1.5-8.5); NEUTROPHILS % 40.8 % (36.0-66.0); PLATELET COUNT, AUTOMATED 225 10^3/uL (150-450); RED BLOOD COUNT 4.68 10^6/uL (4.00-5.40); WHITE BLOOD COUNT 5.8 10^3/uL (4.0-10.0)
== END 2019-10-13 19:05 | disposition home or self-care (01) ==
LOC: M ED 15:05
DX: N83.201 Unspecified ovarian cyst, right side (principal); R11.2 Nausea with vomiting, unspecified; R10.2 Pelvic and perineal pain; K59.00 Constipation, unspecified; M54.9 Dorsalgia, unspecified; Z88.6 Allergy status to analgesic agent; Z87.442 Personal history of urinary calculi
CPT/HCPCS: 74177; 80048; 80076; 83690; 84703; 85025; 96374; 99283; J2405; Q9967

== ENCOUNTER 2019-10-24 09:01 | Emergency (ER) | payer OTHER ==
[~2019-10-24] VITALS: Ht 152.4 cm; Wt 70.9 kg
[2019-10-24 11:25] VITALS: BP 122/68
== END 2019-10-24 11:28 | disposition home or self-care (01) ==
LOC: M ED 09:01
DX: B34.8 Other viral infections of unspecified site (principal)